=== PATIENT | male | born 1995 | race American Indian/Alaskan Native ===

== ENCOUNTER 2019-06-15 10:58 | Emergency (ER) | payer OTHER ==
[~2019-06-15] VITALS: Ht 170.2 cm; Wt 99.8 kg
--- NOTE | 2019-06-15 11:05 | NUR ---
PT TAKEN TO ER BED 08
[2019-06-15 11:10] VITALS: BP 141/87
--- NOTE | 2019-06-15 11:20 | NUR ---
PT BIB FAMILY TO THE ED WITH THE CHIEF C/O RIGHT AND LEFT LQ ABDOMINAL PAIN S/P APPENDECTOMY WHICH WAS DONE ON April. REGINO SURGICAL WOUND NOTED. PT C/O HAVING BLOOD IN STOOL SINCE YESTERDAY. STATES PAIN OF 6/10 AT THIS TIME. PT WAS SEEN BY DOCTOR IN [place] FOR THE SAME REASON ON LAST MONDAY DIAGNOSED THERE HAVING CONSTIPATION. TAKING STOOL SOFTNER FOR CONSTIPATION AND NORCO FOR PAIN. DENIES FEVER, N/V/D. DENIES BURNING URINATION OR OTHER ISSUES AT THIS TIME.
--- NOTE | 2019-06-15 11:52 | NUR ---
Patient being evaluated by ER MD at this time.
[2019-06-15] MEDS ORDERED: KETOROLAC 30 MG/ML VIAL IVP ONE (11:55)
[2019-06-15] MEDS ORDERED: NACL 0.9% 1,000 ML IV ONE (11:55)
[2019-06-15] MEDS ORDERED: ONDANSETRON 4 MG/2 ML VIAL IVP ONE (11:55)
--- NOTE | 2019-06-15 12:31 | NUR ---
Unable to start iv line in 2nd attampt. Family refused nurse to poke for iv line. Charge nurse made aware.
[2019-06-15 12:32] LABS: BASOPHILS # (AUTO) 0.1 K/uL (0.00-0.22); BASOPHILS % (AUTO) 1.2 % (0.0-2.0); EOSINOPHILS # (AUTO) 0.1 K/uL (0-0.4); EOSINOPHILS % (AUTO) 1.8 % (0.0-4.0); HEMOGLOBIN 16.6 g/dL (12.0-18.0); LYMPHOCYTES # (AUTO) 1.3 K/uL (2.0-11.5); MEAN CORPUSCULAR HEMOGLOBIN 29 pg (27-31); MEAN CORPUSCULAR HGB CONC 34 g/dL (33-37); MONOCYTES # (AUTO) 0.5 K/uL (0.8-1.0); MONOCYTES % (AUTO) 7.6 % (1.7-9.3); NEUTROPHILS # (AUTO) 4.3 K/uL (1.8-7.7); NEUTROPHILS % (AUTO) 69.4 % (42.2-75.2); PLATELET COUNT (AUTO) 205 K/uL (140-450); RED BLOOD CELL COUNT(AUTO) 5.84 MIL/uL (4.20-6.10); RED CELL DISTRIBUTION WIDTH 13.9 % (11.6-13.7); WHITE BLOOD COUNT (AUTO) 6.3 K/uL (4.8-10.8)
[2019-06-15 12:35] LABS: APPEARANCE,URINE HAZY (CLEAR); BILIRUBIN,URINE NEGATIVE (NEGATIVE); BLOOD, URINE TRACE-I (NEGATIVE); COLOR,URINE YELLOW (YELLOW); LEUKOCYTE ESTERASE ,URINE NEGATIVE (NEGATIVE); NITRITE, URINE NEGATIVE (NEGATIVE); UGLUCOSE NEGATIVE (NEGATIVE)
[2019-06-15 12:43] LABS: RBC,URINE 0-5 /HPF (0-5); WBC,URINE 0-5 /HPF (0-5)
[2019-06-15 12:44] LABS: ANION GAP 15.2 (8-16); CARBON DIOXIDE 24.8 mmol/L (21-32); CREATININE 0.8 mg/dL (0.7-1.3)
[2019-06-15 12:50] LABS: ALBUMIN 4.3 g/dL (3.4-5.0); TOTAL BILIRUBIN 0.7 mg/dL (0.0-1.0)
--- NOTE | 2019-06-15 14:00 | NUR ---
Patient discharged with v/s stable. Written and verbal after care instructions given and explained to pt and family by Dr. Ellis. Patient alert, oriented and verbalized understanding of instructions. Ambulatory with steady gait. All questions addressed prior to discharge by Dr. Ellis. ID band removed. Patient advised to follow up with PMD. Rx of [facility] MILK OF MAGNESIA given. Patient educated on indication of medication including possible reaction and side effects. Opportunity to ask questions provided and answered.
[2019-06-15 14:12] VITALS: BP 121/75
== END 2019-06-15 14:00 | disposition home or self-care (01) ==
LOC: MED 10:58
DX: R10.84 Generalized abdominal pain (principal); K59.00 Constipation, unspecified; Z90.49 Acquired absence of other specified parts of digestive tract
CPT/HCPCS: 36415; 74176; 80053; 81001; 82150; 83690; 85025; 96374; 96375; 99284; J1885; J2405; J7030